=== PATIENT | female | born 1965 | race Caucasian/White ===

== ENCOUNTER 2017-06-01 16:55 | Inpatient (IN) ==
[2017-06-01] MEDS ORDERED: MYLANTA/LIDO VISC 2:1 300 ML BOTTLE SWISH/SWAL PRN (19:48)
[2017-06-01] MEDS ORDERED: guaiFENesin 200 MG/10 ML UDCUP PO PRN (19:48)
[2017-06-01] MEDS ORDERED: MAGNESIUM HYDROXIDE SUSP 30 ML UDCUP PO PRN (19:48)
[2017-06-01] MEDS ORDERED: TEMAZEPAM 7.5 MG CAPSULE PO PRN (19:48)
[2017-06-01] MEDS ORDERED: LACTULOSE 20 GM/30 ML UDCUP PO PRN (19:48)
[2017-06-01] MEDS ORDERED: chlorproMAZINE INJ 50 MG in SODIUM CHLORIDE 0.9% 100 ML IV PRN (19:48)
[2017-06-01] MEDS ORDERED: ONDANSETRON 4 MG/2 ML VIAL IV PRN (19:48)
[2017-06-01] MEDS ORDERED: BENZTROPINE 2 MG/2 ML AMP IV PRN (19:48)
[2017-06-01] MEDS ORDERED: diphenhydrAMINE CAP 25 MG CAPSULE PO PRN (19:48)
[2017-06-01] MEDS ORDERED: ALPRAZolam 0.25 MG TABLET PO PRN (19:48)
[2017-06-01] MEDS ORDERED: chlorproMAZINE 25 MG TABLET PO PRN (19:48)
[2017-06-01] MEDS ORDERED: chlorproMAZINE INJ 25 MG in SODIUM CHLORIDE 0.9% 100 ML IV PRN (19:48)
[2017-06-01] MEDS ORDERED: ALUMINUM/MAGNES/SIMETH MAX STR 30 ML UDCUP PO PRN (19:48)
[2017-06-01] MEDS ORDERED: traMADol 50 MG TABLET PO PRN (19:48)
[2017-06-01] MEDS ORDERED: MYLANTA/LIDO VISC 2:1 300 ML BOTTLE SWISH/SPIT PRN (19:48)
[2017-06-01] MEDS ORDERED: LOPERAMIDE 2 MG CAPSULE PO PRN ×2 (19:48)
[2017-06-01] MEDS ORDERED: PROMETHAZINE INJ 25 MG in SODIUM CHLORIDE 0.9% 50 ML IV PRN (19:48)
[2017-06-01] MEDS ORDERED: ACETAMINOPHEN 325 MG TABLET PO PRN (19:48)
[2017-06-01 20:25] LABS: Basophils % 0.5 % (0.0-0.8); Eosinophils # 0.1 10*3/uL (0.0-0.87); Eosinophils % 1.8 % (0.00-10.9); Hematocrit 42.3 VOL% (35.7-47.0); Hemoglobin 13.8 GM/DL (12.0-16.0); Immature Granulocytes % 0.2 %; Immature Granulocytes Absolute 0.01 #; Lymphocytes # 2.3 10*3/uL (1.4-4.0); Lymphocytes % 34.6 % (21.3-54.2); Mean Corpuscular HGB Conc 32.6 GM/DL (32-36); Mean Corpuscular Hemoglobin 28 PG (27-34); Mean Corpuscular Volume 84.8 FL (87-102); Mean Platelet Volume 9.9 FL (9.6-12.0); Monocytes # 0.1 10*3/uL (0.11-0.8); Monocytes % 1.5 % (1.7-12.7); Neutrophils % 61.4 % (38.7-73.9); Platelet Count 148 T/CUMM (130-400); Red Blood Count 4.99 MC/CUMM (3.8-5.5); Red Cell Distribution Width 14.2 % (9.3-17.3); White Blood Count 6.5 T/CUMM (4-12)
[2017-06-01 20:57] LABS: Albumin 3.6 G/DL (3.4-5.0); Calcium 8.9 MG/DL (8.5-10.1); Magnesium 2.3 MG/DL (1.8-2.4); Osmolality,Calculated 281.3 MOS/KG (273-304); Potassium 3.6 MMOL/L (3.5-5.1); Total Protein 6.6 G/DL (6.4-8.3); Uric Acid 5.7 MG/DL (2.6-6.0)
--- NOTE | 2017-06-02 07:49 | Oncology Progress Note ---
Oncology Subjective PN Interval history: Ms. Shah is admitted with increasing neck pain, shortness of breath and abdominal pain with bloating. She has a history of being diagnosed as having ovarian cancer initially in May [address] Kevin Malin with surgery followed by chemotherapy using Taxol and carboplatin. The ovarian cancer recurred in October 2016 and she underwent debulking surgery, again by Dr. Malin. She was begun on palliative chemotherapy using Taxol, carboplatin and Avastin on December 16, 2016. At the time of recurrence, the cancer was stage IIIc. She had an anaphylactic reaction to carboplatin in December 2016 with her second dose and the carboplatin was discontinued. The Avastin was discontinued later because of poorly controlled hypertension and she remains on Taxol as a single agent. She received 5 total courses of Taxol either in combination with carboplatin and Avastin or as a single agent. She only got 2 doses of carboplatin and those 5 treatments. Her last dose of Taxol was given April 01, 2017. Clinically she appeared to be developing progression of disease and subsequently she received Gemzar 2000 mg IV on May 27, 2017. She is BRCA positive and would qualify for rucaparib if she progresses on Gemzar. My plan was to continue Gemzar every 2 weeks but she presented to my office yesterday and I dictated the history and physical on my electronic medical record and sent it over yesterday. It is supposed to be downloaded on to this electronic medical record. It is not clear that she has progression of her ovarian cancer because a CA 125 done May 27, 2017 was 16.9 which is normal. In addition her CBC and comprehensive metabolic profile are normal. I had ordered a CT of her abdomen and pelvis from June 03 or we are going to admit her and proceed with it. Past medical history: Allergies: Carboplatin Prior operations include removal of the right rib in [place] in 2003, tonsillectomy in 1971, lumbar back surgery involving L4 and L5 in 1992, appendectomy in 1981 and the surgical debulking procedure done in May 2012. She is on long-term Coumadin therapy She has a history of hypertension, gastroesophageal reflux disease, neuropathy, bipolar disorder and anxiety. Social history: She is a former smoker. She is . Family history: Positive for ovarian cancer in her mother and in one sister and positive for BRCA1 mutation. Her mother also suffered blood clots, carcinoma cervix and her sister underwent bilateral mastectomies and had ovarian cancer. ROS Gen.: Positive for fatigue and weight gain. Negative for night sweats, fever, weakness Eyes: Positive for itchy eyes. No history of chronic disease, infections or visual loss. ENT: Positive for headaches, nasal discharge, facial pain, sneezing, hoarseness and postnasal drip. No history of chronic infections, epistaxis, chronic sore throat Lungs: Positive for recurrent upper respiratory infections and also positive for occasional wheezing. No history of asthma, emphysema, hemoptysis, chronic pleurisy or long-term or chronic infections Cardiovascular: Positive for occasional cardiac related chest pain and also positive for claudication, leg ulcers and blood clots of the lower extremities. No history of angina, coronary artery disease, congestive heart failure, cardiovascular surgery or DVT/VTE GI: Positive abdominal pain, constipation and heartburn. No history of upper or lower GI bleeding, melena, dysphagia, odynophagia, liver disease, gallbladder disease or pancreatic disease. : Positive for back pain and cloudy urine, urinary frequency, urgency and incontinence. No history of kidney stones, chronic kidney infections or hematuria. Musculoskeletal: Positive for occasional back pain and also for mild arthritis. Neurologic: She has had focal weakness in the past and has a history of headaches and urinary incontinence. No history of seizures, convulsions or paralysis. Psychiatric: No history of chronic psychiatric illness or psychiatric medications. Lymphatic: No history of significant or long-term lymphadenopathy Hematologic: She has had occasional leukopenia and thrombocytopenia while on chemotherapy. She is also on Coumadin. Otherwise, no history of anemia, bleeding disorders or blood dyscrasias or long-term elevation or depression white cell count or petechiae. Skin: No history of chronic skin infections or rashes or significant skin lesions. Physical examination: General: The patient appears acutely and chronically ill. She is extremely weak. Eyes: Normal lids and conjunctivae. ENT: Edentulous. Her oral mucosa and pharynx are normal. Her hearing is normal. Neck: Her trachea is midline and she has no neck masses. Lungs: Breath sounds are slightly coarse throughout without rubs, rales or rhonchi. Her chest moves symmetrically with respiration. She has tenderness in the right supraclavicular fossa in the area of her Mediport catheter line. Cardiovascular: Her heart rhythm is regular without murmur, gallop or rub. There is no jugular venous distention, clubbing, cyanosis or edema. Abdomen: She is tender throughout her abdomen but I palpate no ascites or masses and there is no organomegaly. Musculoskeletal: There is no focal muscle atrophy or bone or joint deformity. Neurologic: Cranial nerves II through XII are intact. The no focal neurologic deficits. Psychiatric: She is oriented to time, place, person and situation with normal mood and affect. Nodes: I palpate no cervical, supraclavicular or submandibular or axillary adenopathy. Skin: I see no significant skin lesions or rashes of the head neck trunk or upper extremities. Impression: This patient is having right upper neck pain of indefinite etiology that I suspect might be related to her Mediport catheter: Recurrent ovarian cancer currently on chemotherapy using Gemzar which she received for the first time last week. She had been treated previously with Taxol, carboplatin and Avastin but had an allergic reaction to carboplatin and became hypertensive on Avastin. The patient is on long-term anticoagulation with Coumadin because of a history of CVA. Exam - Constitutional Vitals: Period Temp Pulse Resp BP Sys/Orr Pulse Ox Last 24 Hr 97.3 F-98.7 F 62-77 18-20 140-172/79-84 94-96 Results - Labs CBC & BMP: 06/01/17 20:06 06/01/17 20:06
--- NOTE | 2017-06-02 09:07 | CT Report ---
CT abdomen pelvis Indication: Abdominal pain, ovarian cancer Comparison: 02 October 2016 Technique: Axial CT imaging of the abdomen and pelvis is performed with intravenous and oral contrast. Contrast dose is 100 cc of Omnipaque 350. Findings: Cardiac and lung bases are within normal limits CT abdomen: The liver spleen pancreas and adrenal glands are normal in size and enhancement. No evidence of focal lesion is demonstrated in these solid organs. Kidneys are normal in size and enhancement. No evidence of hydronephrosis or nephrolithiasis is seen. The bowel caliber is normal and no wall thickening or adjacent inflammatory change is seen. No evidence of free fluid or free air is present. Aortic caliber is within normal limits and no evidence of aneurysm seen. Small amount of calcification is present. CT pelvis: The pelvic bowel appears within normal limits. Bladder shows no evidence of abnormality. The uterus and ovaries are not identified. No mass or enlarged lymph nodes are present. Impression: No evidence of acute findings or significant change demonstrated This CT exam was performed using one or more the following dose reduction techniques: Automated exposure control, adjustment of the MA and/or KV according to patient size, or use of iterative reconstruction technique. PROCEDURE INTERPRETED AT [facility] DEPARTMENT OF RADIOLOGY Final Report Signed by: Dr. Ayo Melendez
[2017-06-02] MEDS: ALPRAZolam 0.5 MG TABLET PO SCH ×2 (10:25→21:18)
[2017-06-02] MEDS: LEVOFLOXACIN INJ 750 MG in PREMIX 1 EACH IV SCH (10:25)
[2017-06-02] MEDS: amLODIPine 5 MG TABLET PO SCH ×2 (10:25→21:13)
[2017-06-02] MEDS: PANTOPRAZOLE 40 MG TABLET PO SCH (10:25)
[2017-06-02] MEDS: hydroCHLOROthiazide 12.5 MG CAPSULE PO SCH ×2 (10:25→21:12)
[2017-06-02] MEDS: BUDESONIDE/FORMOTEROL 160-4.5 INHALER 6 GM INH SCH (10:25)
[2017-06-02] MEDS: METOPROLOL TARTRATE 100 MG TABLET PO SCH ×2 (10:25→21:13)
[2017-06-02 10:58] LABS: Apearance,Urine CLEAR (Clear); Bilirubin,Urine Negative (Negative); Blood, Urine Small mg/dL (Negative); Glucose,Urine (UA) Negative (Negative); Ketones,Urine Negative (Negative); Nitrite,Urine Negative (Negative); Protein,Urine Negative; RBC,Urine 1 /HPF (0-4); Squamous Epithelial Cell,Urine Occasional /HPF (0-10); Urine Color Straw (Yellow); Urine Specific Gravity 1.058 (1.001-1.035); Urine Urobilinogen < 2.0 EU/DL (0.2-1.0); WBC,Urine 1 /HPF (0-6)
[2017-06-02] MEDS: MAGNESIUM OXIDE 400 MG TABLET PO SCH ×2 (14:06→21:12)
[2017-06-02] MEDS: GABAPENTIN 300 MG CAPSULE PO SCH ×2 (14:06→21:12)
[2017-06-02 14:21] LABS: INR 1.6; PT Patient Result 17.4 SECS
[2017-06-02] MEDS: SIMVASTATIN 20 MG TABLET PO SCH (17:49)
[2017-06-02] MEDS: DEXT 5% NACL 0.45% KCL 20 MEQ 20 MEQ/1,000 ML BAG IV SCH (17:49)
[2017-06-02] MEDS ORDERED: WARFARIN 5 MG TABLET PO SCH (18:00)
[2017-06-02] MEDS: ZALEPLON 5 MG CAPSULE PO SCH (21:13)
[2017-06-03 06:35] LABS: INR 1.6; PT Patient Result 16.4 SECS
--- NOTE | 2017-06-03 08:12 | Oncology Progress Note ---
Oncology Subjective PN Interval history: I ordered a CT of the chest, abdomen and pelvis on Ms. Shah. We are going to go ahead and get it today along with CT of the neck. She has no obvious evidence of metastatic disease in her abdomen or pelvis from her metastatic ovarian cancer but she is still having right neck pain in the area of her Mediport catheter line over the medial end of the supraclavicular fossa on the right. I have her on antibiotics and anticipate being able to send her home very soon but I want to obtain additional information concerning possible pulmonary emboli because she has a history of hypercoagulability with a stroke and she also needs further evaluation of her neck to see if there is any infectious process or metastatic disease there. She is fully oriented and alert now. She is in no acute distress. Her respirations are unlabored. Her voice is clear. Her trachea is midline. She had redness in the right supraclavicular fossa yesterday but this is resolved which makes it suspicious for possible infection responding to antibiotic therapy. Exam - Constitutional Vitals: Period Temp Pulse Resp BP Sys/Ror Pulse Ox Last 24 Hr 96.8 F-98.6 F 61-74 18-20 105-163/64-95 96-99 Results - Labs CBC & BMP: 06/01/17 20:06 06/01/17 20:06
--- NOTE | 2017-06-03 10:03 | CT Report ---
CT chest PE study Indication: Dyspnea Comparison: CT chest abdomen pelvis dated October 02, 2016 Technique: Multiple axial tomographic images of the chest were obtained after the administration of 100 cc Omnipaque 350 intravenous contrast. PE protocol followed. Coronal and sagittal maximum intensity projection images provided. Findings: Heart size within normal limits. Atherosclerotic calcifications within the coronary arteries and great vessels. Mild nonspecific prominence of bilateral hilar lymph nodes. No segmental or larger pulmonary embolism demonstrated. Emphysematous change noted within the lungs which are predominantly paraseptal and upper lobe predominant. Mild dependent change of the lungs present. No focal consolidation, pleural effusion, or pneumothorax. Small Bochdalek type hernia on the left. Small-volume biliary sludge suggested. Visualized upper abdomen demonstrates no acute abnormality. Visualized osseous and surrounding soft tissue structures appear grossly unchanged. IMPRESSION: No segmental or larger pulmonary embolism demonstrated. Emphysematous change of the lungs and other detailed findings as above. The CT exam was performed using one or more of the following dose reduction techniques: Automated exposure control, adjustment of the mA and/or kV according to patient size, or use of iterative reconstruction technique. PROCEDURE INTERPRETED AT [facility] DEPARTMENT OF RADIOLOGY Final Report Signed by: Dr Parminder Telles
[2017-06-03] MEDS: LEVOFLOXACIN INJ 750 MG in PREMIX 1 EACH IV SCH (10:20)
[2017-06-03] MEDS: PANTOPRAZOLE 40 MG TABLET PO SCH (10:22)
[2017-06-03] MEDS: METOPROLOL TARTRATE 100 MG TABLET PO SCH ×2 (10:22→20:39)
[2017-06-03] MEDS: MAGNESIUM OXIDE 400 MG TABLET PO SCH ×3 (10:22→20:40)
[2017-06-03] MEDS: amLODIPine 5 MG TABLET PO SCH ×2 (10:23→20:40)
[2017-06-03] MEDS: ALPRAZolam 0.5 MG TABLET PO SCH ×2 (10:23→20:41)
[2017-06-03] MEDS: GABAPENTIN 300 MG CAPSULE PO SCH ×3 (10:24→20:41)
[2017-06-03] MEDS: hydroCHLOROthiazide 12.5 MG CAPSULE PO SCH ×2 (10:24→20:40)
--- NOTE | 2017-06-03 10:49 | CT Report ---
CT soft tissue neck Indication: Pain and edema Technique:Axial CT imaging of the neck is performed with contrast. Contrast dose is 80 cc Omnipaque 350 Comparison: None available Findings: No mass or adenopathy is seen. The parotid glands and submandibular glands are symmetric in size and density. The pharyngeal and laryngeal structures are normal in appearance. The thyroid gland and trachea appear within normal limits. Right internal jugular Port-A-Cath is present. There is suggestion of some thrombus in the right internal jugular vein. The catheter insertion and just proximal to the catheter. Left internal jugular vein is dominant. Vascular structures have normal contrast appearance. No other abnormal enhancement is seen. Impression: Suggestion of venous thrombosis in the right internal jugular vein, ultrasound may be useful to further evaluate this area. This CT exam was performed using one or more the following dose reduction techniques: Automated exposure control, adjustment of the MA and/or KV according to patient size, or use of iterative reconstruction technique. PROCEDURE INTERPRETED AT [facility] DEPARTMENT OF RADIOLOGY Final Report Signed by: Dr. Ayo Melendez
[2017-06-03] MEDS: BUDESONIDE/FORMOTEROL 160-4.5 INHALER 6 GM INH SCH (15:13)
[2017-06-03] MEDS: SIMVASTATIN 20 MG TABLET PO SCH (20:39)
[2017-06-03] MEDS: APIXABAN 5 MG TABLET PO SCH (20:39)
[2017-06-03] MEDS: ZALEPLON 5 MG CAPSULE PO SCH (20:40)
[2017-06-03] MEDS: DEXT 5% NACL 0.45% KCL 20 MEQ 20 MEQ/1,000 ML BAG IV SCH (23:22)
[2017-06-04 05:33] LABS: Basophils % 0.8 % (0.0-0.8); Eosinophils # 0.1 10*3/uL (0.0-0.87); Eosinophils % 1.4 % (0.00-10.9); Hematocrit 41.5 VOL% (35.7-47.0); Hemoglobin 13.9 GM/DL (12.0-16.0); Immature Granulocytes % 0.8 %; Immature Granulocytes Absolute 0.04 #; Lymphocytes # 2.4 10*3/uL (1.4-4.0); Lymphocytes % 47.5 % (21.3-54.2); Mean Corpuscular HGB Conc 33.5 GM/DL (32-36); Mean Corpuscular Hemoglobin 28 PG (27-34); Mean Corpuscular Volume 83.7 FL (87-102); Mean Platelet Volume 9.9 FL (9.6-12.0); Monocytes # 0.7 10*3/uL (0.11-0.8); Monocytes % 13.3 % (1.7-12.7); NRBC # 0.03 10*3/uL; Neutrophils # 1.8 10*3/uL (1.4-7.4); Neutrophils % 36.2 % (38.7-73.9); Platelet Count 124 T/CUMM (130-400); Red Blood Count 4.96 MC/CUMM (3.8-5.5); Red Cell Distribution Width 14.1 % (9.3-17.3)
[2017-06-04 05:57] LABS: Eosinophils 1 % (0-10); Giant Platelets Few; Hypochromasia 1+; Lymphocytes 47 % (20-55); Ovalocytes Slight; Platelet Estimate Normal; Segmented Neutrophils 38 % (50-85); Total Cells Counted 100
--- NOTE | 2017-06-04 07:50 | Oncology Progress Note ---
Oncology Subjective PN Interval history: This patient is having right upper neck pain of indefinite etiology that I suspect might be related to her Mediport catheter: This is now been confirmed. She has local clot formation in the internal jugular vein. I have at least temporarily switched her to Eliquis from Coumadin. I consider Eliquis a safer drug. If she remains stable, I will plan to discharge her tomorrow and have her return for her next dose of Gemzar next week. Recurrent ovarian cancer currently on chemotherapy using Gemzar which she received for the first time last week. She had been treated previously with Taxol, carboplatin and Avastin but had an allergic reaction to carboplatin and became hypertensive on Avastin. She is currently on Gemzar and apparently in complete remission. She is due Gemzar again next week. The patient is on long-term anticoagulation with Coumadin because of a history of CVA. She is fully oriented and alert and in no new distress. Her right neck pain and swelling have improved. I am going to continue IV antibiotics 1 more day as well for possible infection resulting in the thrombosis. She is having no arm swelling and there has never been any significant swelling of the neck or face, just tenderness and focal redness that I attributed to her rubbing the spot. Lab work today includes a normal white cell count of 5000 with a hemoglobin of 13.9 and a platelet count is only slightly low at 124,000. I will recheck lab work tomorrow but anticipate discharge. Exam - Constitutional Vitals: Period Temp Pulse Resp BP Sys/Orr Pulse Ox Last 24 Hr 96.5 F-97.2 F 65-83 18-20 98-136/63-93 96-97 Results - Labs CBC & BMP: 06/04/17 04:39 06/01/17 20:06
[2017-06-04] MEDS: GABAPENTIN 300 MG CAPSULE PO SCH ×3 (08:50→21:24)
[2017-06-04] MEDS: APIXABAN 5 MG TABLET PO SCH ×2 (08:50→21:24)
[2017-06-04] MEDS: MAGNESIUM OXIDE 400 MG TABLET PO SCH ×3 (08:50→21:24)
[2017-06-04] MEDS: ALPRAZolam 0.5 MG TABLET PO SCH ×2 (08:50→21:24)
[2017-06-04] MEDS: PANTOPRAZOLE 40 MG TABLET PO SCH (08:50)
[2017-06-04] MEDS: METOPROLOL TARTRATE 100 MG TABLET PO SCH ×2 (08:51→21:04)
[2017-06-04] MEDS: amLODIPine 5 MG TABLET PO SCH ×2 (08:51→21:04)
[2017-06-04] MEDS: LEVOFLOXACIN INJ 750 MG in PREMIX 1 EACH IV SCH (08:51)
[2017-06-04] MEDS: hydroCHLOROthiazide 12.5 MG CAPSULE PO SCH ×2 (08:51→21:04)
[2017-06-04] MEDS: DEXT 5% NACL 0.45% KCL 20 MEQ 20 MEQ/1,000 ML BAG IV SCH ×2 (08:55→21:29)
[2017-06-04] MEDS: BUDESONIDE/FORMOTEROL 160-4.5 INHALER 6 GM INH SCH (08:56)
[2017-06-04] MEDS: SIMVASTATIN 20 MG TABLET PO SCH (17:14)
[2017-06-04] MEDS: ZALEPLON 5 MG CAPSULE PO SCH (21:24)
[2017-06-05 03:59] LABS: Basophils % 0.2 % (0.0-0.8); Eosinophils # 0.1 10*3/uL (0.0-0.87); Eosinophils % 1.4 % (0.00-10.9); Hematocrit 36.7 VOL% (35.7-47.0); Hemoglobin 12.2 GM/DL (12.0-16.0); Immature Granulocytes % 0.5 %; Immature Granulocytes Absolute 0.03 #; Lymphocytes # 2.5 10*3/uL (1.4-4.0); Lymphocytes % 44.4 % (21.3-54.2); Mean Corpuscular HGB Conc 33.2 GM/DL (32-36); Mean Corpuscular Hemoglobin 28 PG (27-34); Mean Corpuscular Volume 84.4 FL (87-102); Mean Platelet Volume 10.1 FL (9.6-12.0); Monocytes # 0.7 10*3/uL (0.11-0.8); Monocytes % 12.1 % (1.7-12.7); NRBC # 0.02 10*3/uL; Neutrophils # 2.4 10*3/uL (1.4-7.4); Neutrophils % 41.4 % (38.7-73.9); Platelet Count 116 T/CUMM (130-400); Red Blood Count 4.35 MC/CUMM (3.8-5.5); Red Cell Distribution Width 14.2 % (9.3-17.3); White Blood Count 5.7 T/CUMM (4-12)
[2017-06-05 04:37] LABS: Bilirubin,Total 0.8 MG/DL (0.2-1.0); Calcium 8.5 MG/DL (8.5-10.1); Osmolality,Calculated 281.3 MOS/KG (273-304); Potassium 3.6 MMOL/L (3.5-5.1); Total Protein 5.6 G/DL (6.4-8.3)
--- NOTE | 2017-06-05 08:09 | Oncology Progress Note ---
Oncology Subjective PN Interval history: Diagnoses: Right internal jugular vein thrombosis: Ms. Shah was admitted with right neck pain that turned out to be thrombosis of the right internal jugular vein. She was on Coumadin but am discharging her on Eliquis and discontinuing the Coumadin. She will go home on Eliquis 5 mg p.o. twice daily but she is instructed to not dispose of her Coumadin in case we go back to it. Recurrent ovarian carcinoma with stage IIIb disease: During this hospital stay she underwent scanning of the neck, chest, abdomen and pelvis using CT with contrast. She has no evidence of recurrence or metastatic disease from her ovarian cancer. She is scheduled for her second dose of Gemzar on June 10 and she is instructed to come to the office to receive it that day. History of cerebrovascular accident on long-term anticoagulant therapy: We are switching her to Eliquis from Coumadin. There should be slightly less risk of life-threatening hemorrhage by doing this. In addition, we will not need to check prothrombin times. Thrombocytopenia: The patient's platelet count is above 100,000 so her blood count is satisfactory for discharge. Exam - Constitutional Vitals: Period Temp Pulse Resp BP Sys/Orr Pulse Ox Last 24 Hr 97.3 F-100.0 F 80-96 18-20 71-117/56-82 92-96 Results - Labs CBC & BMP: 06/05/17 03:31 06/05/17 03:31
--- NOTE | 2017-06-05 09:14 | Discharge Summary ---
Hospital Course - Hospital Course Hospital Course: Diagnoses: Right internal jugular vein thrombosis: Ms. Shah was admitted with right neck pain that turned out to be thrombosis of the right internal jugular vein. She was on Coumadin but am discharging her on Eliquis and discontinuing the Coumadin. She will go home on Eliquis 5 mg p.o. twice daily but she is instructed to not dispose of her Coumadin in case we go back to it. Recurrent ovarian carcinoma with stage IIIb disease: During this hospital stay she underwent scanning of the neck, chest, abdomen and pelvis using CT with contrast. She has no evidence of recurrence or metastatic disease from her ovarian cancer. She is scheduled for her second dose of Gemzar on June 10 and she is instructed to come to the office to receive it that day. History of cerebrovascular accident on long-term anticoagulant therapy: We are switching her to Eliquis from Coumadin. There should be slightly less risk of life-threatening hemorrhage by doing this. In addition, we will not need to check prothrombin times. Thrombocytopenia: The patient's platelet count is above 100,000 so her blood count is satisfactory for discharge. Discharge Plan - Discharge Data Disposition: Disch To Home/Self Care Condition at Discharge: Guarded Discharge Diet: advance to your usual diet Activity: resume usual activities as tolerated Hygiene: no restrictions Weight Bearing at Discharge: weight bear as tolerated Driving: other Contact your physician if you experience:: fever over 101, Difficulty voiding, Redness or swelling, Nausea/Vomiting, Shortness of breath, Bleeding, pain uncontrolled by pain medications - Discharge Medications New Apixaban [Eliquis] 5 mg PO BID #60 tablet Continue Simvastatin 20 mg PO DAILY W/SUPPER Omeprazole 20 mg PO DAILY Metoprolol Tartrate 100 mg PO BID Gabapentin 300 mg PO TID Amlodipine Besylate 5 mg PO BID ALPRAZolam [Alprazolam] 0.5 mg PO BID Magnesium Oxide 400 mg PO TID hydroCHLOROthiazide [Hydrochlorothiazide] 12.5 mg PO BID Zolpidem Tartrate 10 mg PO BEDTIME Budesonide/Formoterol 160-4.5 [Symbicort 160-4.5] 1 puff INH DAILY Discontinued Warfarin Sodium [Warfarin Sodium] 5 mg PO DAILY - Follow Up or Referral - Forms/Instructions Additional Discharge Instructions: Return as already scheduled for chemotherapy next Thursday. Keep follow-up visit already scheduled to see me. Exam - Constitutional Vitals: Period Temp Pulse Resp BP Sys/Orr Pulse Ox Last 24 Hr 97.3 F-100.0 F 80-96 18-20 71-117/56-82 92-96 Discharge Results Procedures and tests throughout hospitalization: Pending Orders 06/06/17 04:00 Comp Blood Count Auto Diff IN AM 06/07/17 04:00 Comp Blood Count Auto Diff IN AM 06/08/17 04:00 Comp Blood Count Auto Diff IN AM 06/09/17 04:00 Comp Blood Count Auto Diff IN AM 06/10/17 04:00 Comp Blood Count Auto Diff IN AM Labs on day of discharge: Labs from last 24 hours 06/05/17 06/05/17 03:31 03:31 WBC 5.7 RBC 4.35 Hgb 12.2 Hct 36.7 MCV 84.4 L MCH 28 MCHC 33.2 RDW 14.2 Plt Count 116 L MPV 10.1 Neut % (Auto) 41.4 Lymph % (Auto) 44.4 [place] % (Auto) 12.1 Eos % (Auto) 1.4 Baso % (Auto) 0.2 Neut # (Auto) 2.4 Lymph # (Auto) 2.5 [place] # (Auto) 0.7 Eos # (Auto) 0.1 Baso # (Auto) 0.0 Immature Gran % 0.5 Nucleated RBC % 0.3 Immature Gran # 0.03 Nucleated RBCs # 0.02 Immature Plt Fraction 0.0 Sodium 141 Potassium 3.6 Chloride 105 Carbon Dioxide 28 Anion Gap 11.6 BUN 13 Creatinine 1.00 GFR Calculation 73 BUN/Creatinine Ratio 13.00 Glucose 120 H Calculated Osmolality 281.3 Calcium 8.5 Total Bilirubin 0.80 AST 11 ALT 21 Alkaline Phosphatase 81 Lactate Dehydrogenase 190 Total Protein 5.6 L Albumin 3.0 L Globulin 2.6 Albumin/Globulin Ratio 1.1 DS: Provider Date of admission: 06/01/17 16:55 Primary care physician: Abad Mccann MD Attending physician on admission: Abad Mccann MD Discharging clinician: Abad Mccann MD
[2017-06-05] MEDS: MAGNESIUM OXIDE 400 MG TABLET PO SCH (09:19)
[2017-06-05] MEDS: APIXABAN 5 MG TABLET PO SCH (09:19)
[2017-06-05] MEDS: ALPRAZolam 0.5 MG TABLET PO SCH (09:19)
[2017-06-05] MEDS: GABAPENTIN 300 MG CAPSULE PO SCH (09:19)
[2017-06-05] MEDS: PANTOPRAZOLE 40 MG TABLET PO SCH (09:20)
[2017-06-05] MEDS: LEVOFLOXACIN INJ 750 MG in PREMIX 1 EACH IV SCH (09:20)
[2017-06-05] MEDS: BUDESONIDE/FORMOTEROL 160-4.5 INHALER 6 GM INH SCH (09:24)
[2017-06-05] MEDS: amLODIPine 5 MG TABLET PO SCH (11:29)
[2017-06-05] MEDS: hydroCHLOROthiazide 12.5 MG CAPSULE PO SCH (11:30)
[2017-06-05] MEDS: METOPROLOL TARTRATE 100 MG TABLET PO SCH (11:30)
== END 2017-06-05 11:30 | disposition home health service, planned readmission (86) | DRG 300 ==
LOC: N.4E 16:55
PROVIDERS: ADMIT Specialist; ATTEND Specialist

== ENCOUNTER 2020-08-10 18:51 | Observation (INO) ==
[2020-08-10 20:29] LABS: Basophils # 0.1 10*3/uL (0.0-0.2); Eosinophils # 0.2 10*3/uL (0.0-0.87); Eosinophils % 2.6 % (0.00-10.9); Hematocrit 42.6 VOL% (35.7-47.0); Hemoglobin 14.3 GM/DL (12.0-16.0); Immature Granulocytes % 0.4 %; Immature Granulocytes Absolute 0.03 #; Lymphocytes # 1.6 10*3/uL (1.4-4.0); Lymphocytes % 23.6 % (21.3-54.2); Mean Corpuscular HGB Conc 33.6 GM/DL (32-36); Mean Corpuscular Volume 90.6 FL (87-102); Mean Platelet Volume 10.6 FL (9.6-12.0); Monocytes % 0.9 % (1.7-12.7); Neutrophils % 71.5 % (38.7-73.9); Platelet Count 314 T/CUMM (130-400); Red Cell Distribution Width 14.8 % (9.3-17.3); White Blood Count 6.9 T/CUMM (4-12)
[2020-08-10] MEDS ORDERED: NITROGLYCERIN SL 0.4 MG TABLET SL PRN (20:36)
[2020-08-10 20:37] LABS: INR 0.9; PT Patient Result 9.9 SECS (9.8-11.9); Partial Thromboplastin Time 29.2 SECS (23.9-33.8)
[2020-08-10 20:54] LABS: Albumin 3.8 G/DL (3.4-5.0); Bilirubin,Total 0.6 MG/DL (0.2-1.0); Calcium 8.8 MG/DL (8.5-10.1); Osmolality,Calculated 275.5 MOS/KG (273-304); Total Protein 6.7 G/DL (6.4-8.3)
[2020-08-10 21:07] LABS: Lymphocytes 29 % (20-55); Segmented Neutrophils 68 % (50-85); Total Cells Counted 100
[2020-08-10] MEDS ORDERED: guaiFENesin/DM ER 600-30 MG TABLET PO PRN (23:13)
[2020-08-10] MEDS ORDERED: diphenhydrAMINE CAP 25 MG CAPSULE PO PRN (23:13)
[2020-08-10] MEDS ORDERED: GLUCAGON 1 MG VIAL IM PRN (23:13)
[2020-08-10] MEDS ORDERED: NICOTINE 21 MG/24 HR PATCH TRANSDERM PRN (23:13)
[2020-08-10] MEDS ORDERED: ACETAMINOPHEN 325 MG TABLET PO PRN (23:13)
[2020-08-10] MEDS ORDERED: ONDANSETRON 4 MG/2 ML VIAL IV PRN (23:13)
[2020-08-10] MEDS ORDERED: hydrALAZINE 20 MG/1 ML VIAL IV PRN (23:13)
[2020-08-10] MEDS ORDERED: DEXTROSE 50% 25 GM/50 ML VIAL IV PRN (23:13)
[2020-08-10] MEDS ORDERED: ENOXAPARIN 30 MG/0.3 ML SYRINGE SUBCUT STA (23:17)
[2020-08-10] MEDS ORDERED: ENOXAPARIN 80 MG/0.8 ML SYRINGE SUBCUT ONE (23:30)
[2020-08-11 00:20] LABS: Risk Ratio 6.09; Thyroid Stimulating Hormone 4.55 uIU/ml (0.358-3.74)
[2020-08-11] MEDS: MORPHINE 4 MG/1 ML VIAL IV PRN ×3 (03:31→22:52)
[2020-08-11] MEDS ORDERED: ALBUTEROL/IPRATROPIUM 3 ML NEB RESP TX PRN (08:50)
[2020-08-11] MEDS ORDERED: ASPIRIN EC 81 MG TABLET PO SCH (09:00)
[2020-08-11 09:15] LABS: Free T4 (Free Thyroxine) 1.18 NG/DL (0.76-1.46)
[2020-08-11] MEDS: ENOXAPARIN 60 MG/0.6 ML SYRINGE SUBCUT SCH ×2 (09:47→21:48)
[2020-08-11] MEDS: METOPROLOL TARTRATE 100 MG TABLET PO SCH ×2 (09:47→21:47)
[2020-08-11] MEDS: BUDESONIDE/FORMOTEROL 160-4.5 INHALER 6 GM INH SCH (09:47)
[2020-08-11] MEDS ORDERED: MAGNESIUM SULF RIDER 2 GM in PREMIX 1 EACH IV PRN (11:56)
[2020-08-11] MEDS ORDERED: POTASSIUM CHLORIDE RIDER 10 MEQ in PREMIX 1 EACH IV PRN (11:56)
[2020-08-11] MEDS ORDERED: diphenhydrAMINE CAP 25 MG CAPSULE PO ONE (11:56)
[2020-08-11] MEDS ORDERED: ASPIRIN 325 MG TABLET PO ONE (11:56)
[2020-08-11] MEDS ORDERED: DIAZEPAM 5 MG TABLET PO ONE (11:56)
[2020-08-11] MEDS ORDERED: LIDOCAINE 1% 20 ML VIAL ONE (12:20)
[2020-08-11] MEDS ORDERED: MIDAZOLAM 2 MG/2 ML VIAL ONE (12:35)
[2020-08-11] MEDS ORDERED: fentaNYL 100 MCG/2 ML VIAL ONE (12:35)
[2020-08-11] MEDS ORDERED: CLOPIDOGREL 300 MG TABLET ONE (13:06)
[2020-08-11] MEDS: SODIUM CHLORIDE 0.9% 1,000 ML IV SCH (13:29)
[2020-08-11] MEDS: ALPRAZolam 0.5 MG TABLET PO SCH ×2 (13:29→21:47)
[2020-08-11] MEDS: ISOSORBIDE MONONITRATE 30 MG TABLET PO SCH (13:41)
[2020-08-11] MEDS: PANTOPRAZOLE 40 MG TABLET PO SCH (13:41)
[2020-08-11] MEDS ORDERED: SIMVASTATIN 20 MG TABLET PO SCH (17:00)
[2020-08-11 21:35] LABS: Hematocrit 31.5 VOL% (35.7-47.0); Hemoglobin 10.7 GM/DL (12.0-16.0)
[2020-08-11 23:06] LABS: Hemoglobin 10.5 GM/DL (12.0-16.0)
[2020-08-12] MEDS: SODIUM CHLORIDE 0.9% 1,000 ML IV SCH ×2 (00:34→13:07)
[2020-08-12] MEDS: MORPHINE 4 MG/1 ML VIAL IV PRN (02:03)
[2020-08-12 06:20] LABS: Basophils # 0.1 10*3/uL (0.0-0.2); Basophils % 1.5 % (0.0-0.8); Eosinophils # 0.1 10*3/uL (0.0-0.87); Eosinophils % 1.5 % (0.00-10.9); Hematocrit 32.9 VOL% (35.7-47.0); Hemoglobin 10.8 GM/DL (12.0-16.0); Immature Granulocytes % 0.6 %; Immature Granulocytes Absolute 0.02 #; Lymphocytes # 1.6 10*3/uL (1.4-4.0); Mean Corpuscular HGB Conc 32.8 GM/DL (32-36); Mean Corpuscular Volume 92.9 FL (87-102); Mean Platelet Volume 9.7 FL (9.6-12.0); Monocytes % 7.2 % (1.7-12.7); Neutrophils % 42.2 % (38.7-73.9); Platelet Count 201 T/CUMM (130-400); Red Blood Count 3.54 MC/CUMM (3.8-5.5); Red Cell Distribution Width 14.8 % (9.3-17.3); White Blood Count 3.3 T/CUMM (4-12)
[2020-08-12 06:37] LABS: Calcium 8.1 MG/DL (8.5-10.1); Osmolality,Calculated 281.1 MOS/KG (273-304)
[2020-08-12 07:02] LABS: Hypochromasia 1+; Microcytosis 1+; Ovalocytes Slight; Platelet Estimate Adequate
[2020-08-12] MEDS ORDERED: CLOPIDOGREL 75 MG TABLET PO SCH (09:00)
[2020-08-12] MEDS: PANTOPRAZOLE 40 MG TABLET PO SCH (09:11)
[2020-08-12] MEDS: ISOSORBIDE MONONITRATE 30 MG TABLET PO SCH (09:11)
[2020-08-12] MEDS: ENOXAPARIN 60 MG/0.6 ML SYRINGE SUBCUT SCH (09:11)
[2020-08-12] MEDS: METOPROLOL TARTRATE 100 MG TABLET PO SCH (09:11)
[2020-08-12] MEDS: BUDESONIDE/FORMOTEROL 160-4.5 INHALER 6 GM INH SCH (09:12)
[2020-08-12] MEDS: ALPRAZolam 0.5 MG TABLET PO SCH (09:12)
[2020-08-12 12:15] VITALS: BP 145/80
[2020-08-12] MEDS ORDERED: SIMVASTATIN 40 MG TABLET PO SCH (21:00)
== END 2020-08-12 16:14 | disposition home or self-care (01) ==
LOC: N.ED 18:51 → N.EDINP 18:51 → N.TELEN 23:44
PROVIDERS: ADMIT Specialist; ATTEND Specialist
PROC: CLCCHCL (ICD-10-PCS; 2020-08-11 13:15)

== ENCOUNTER 2021-01-12 22:16 | Inpatient (IN) ==
[2021-01-12] MEDS ORDERED: hydrALAZINE 20 MG/1 ML VIAL IV STA (23:16)
[2021-01-12 23:35] LABS: Basophils # 0.1 10*3/uL (0.0-0.2); Basophils % 0.6 % (0.0-0.8); Eosinophils # 0.2 10*3/uL (0.0-0.87); Eosinophils % 1.7 % (0.00-10.9); Hematocrit 44.3 VOL% (35.7-47.0); Hemoglobin 14.1 GM/DL (12.0-16.0); Immature Granulocytes % 0.3 %; Immature Granulocytes Absolute 0.03 #; Lymphocytes # 2.3 10*3/uL (1.4-4.0); Lymphocytes % 24.4 % (21.3-54.2); Mean Corpuscular HGB Conc 31.8 GM/DL (32-36); Mean Corpuscular Volume 85.5 FL (87-102); Mean Platelet Volume 10.3 FL (9.6-12.0); Monocytes % 12.9 % (1.7-12.7); Neutrophils % 60.1 % (38.7-73.9); Platelet Count 201 T/CUMM (130-400); Red Blood Count 5.18 MC/CUMM (3.8-5.5); Red Cell Distribution Width 17.4 % (9.3-17.3); White Blood Count 9.3 T/CUMM (4-12)
[2021-01-12 23:53] LABS: Albumin 3.5 G/DL (3.4-5.0); Bilirubin,Total 0.5 MG/DL (0.2-1.0); Osmolality,Calculated 286.8 MOS/KG (273-304); Potassium 3.6 MMOL/L (3.5-5.1); Total Protein 6.5 G/DL (6.4-8.2)
[2021-01-13] MEDS ORDERED: KETOROLAC 30 MG/1 ML VIAL IV STA (00:57)
[2021-01-13] MEDS ORDERED: SODIUM CHLORIDE 0.9% 500 ML IV STA (00:57)
[2021-01-13] MEDS ORDERED: VANCOMYCIN INJ 1,000 MG in SODIUM CHLORIDE 0.9% 250 ML IV STA (00:58)
[2021-01-13] MEDS ORDERED: diphenhydrAMINE CAP 25 MG CAPSULE PO PRN (01:31)
[2021-01-13] MEDS ORDERED: GLUCAGON 1 MG VIAL IM PRN (01:31)
[2021-01-13] MEDS ORDERED: ACETAMINOPHEN 325 MG TABLET PO PRN (01:31)
[2021-01-13] MEDS ORDERED: DEXTROSE 50% 25 GM/50 ML VIAL IV PRN (01:31)
[2021-01-13] MEDS ORDERED: ONDANSETRON 4 MG/2 ML VIAL IV PRN (01:31)
[2021-01-13] MEDS: MORPHINE 4 MG/1 ML VIAL IV PRN ×2 (03:26→11:14)
[2021-01-13] MEDS: MEROPENEM 500 MG in SODIUM CHLORIDE 0.9% 100 ML IV SCH ×3 (08:29→20:30)
[2021-01-13] MEDS: VANCOMYCIN INJ 1,000 MG in SODIUM CHLORIDE 0.9% 250 ML IV SCH (14:15)
[2021-01-13] MEDS ORDERED: ALPRAZolam 0.5 MG TABLET PO PRN (14:40)
[2021-01-13] MEDS ORDERED: GABAPENTIN 300 MG CAPSULE PO PRN (14:40)
[2021-01-13] MEDS: MAGNESIUM OXIDE 400 MG TABLET PO SCH ×2 (16:59→20:31)
[2021-01-13] MEDS: APIXABAN 5 MG TABLET PO SCH (20:28)
[2021-01-13] MEDS: SIMVASTATIN 40 MG TABLET PO SCH (20:31)
[2021-01-13] MEDS: ZALEPLON 5 MG CAPSULE PO SCH (20:31)
[2021-01-13] MEDS: METOPROLOL TARTRATE 100 MG TABLET PO SCH (21:36)
[2021-01-14] MEDS: VANCOMYCIN INJ 1,000 MG in SODIUM CHLORIDE 0.9% 250 ML IV SCH ×2 (01:50→15:01)
[2021-01-14] MEDS: MEROPENEM 500 MG in SODIUM CHLORIDE 0.9% 100 ML IV SCH ×4 (02:50→20:48)
[2021-01-14 05:44] LABS: Basophils # 0.1 10*3/uL (0.0-0.2); Basophils % 0.7 % (0.0-0.8); Eosinophils # 0.3 10*3/uL (0.0-0.87); Eosinophils % 3.6 % (0.00-10.9); Hematocrit 40.2 VOL% (35.7-47.0); Hemoglobin 12.7 GM/DL (12.0-16.0); Immature Granulocytes % 0.6 %; Immature Granulocytes Absolute 0.04 #; Lymphocytes # 1.9 10*3/uL (1.4-4.0); Lymphocytes % 26.6 % (21.3-54.2); Mean Corpuscular HGB Conc 31.6 GM/DL (32-36); Mean Corpuscular Volume 85.9 FL (87-102); Mean Platelet Volume 10.6 FL (9.6-12.0); Monocytes % 12.6 % (1.7-12.7); Neutrophils % 55.9 % (38.7-73.9); Platelet Count 172 T/CUMM (130-400); Red Blood Count 4.68 MC/CUMM (3.8-5.5); Red Cell Distribution Width 17.2 % (9.3-17.3)
[2021-01-14] MEDS: MORPHINE 4 MG/1 ML VIAL IV PRN ×2 (08:34→15:00)
[2021-01-14] MEDS: MAGNESIUM OXIDE 400 MG TABLET PO SCH ×3 (08:35→20:49)
[2021-01-14] MEDS: ISOSORBIDE MONONITRATE 30 MG TABLET PO SCH (08:36)
[2021-01-14] MEDS: PANTOPRAZOLE 40 MG TABLET PO SCH (08:36)
[2021-01-14] MEDS: METOPROLOL TARTRATE 100 MG TABLET PO SCH ×2 (08:36→20:49)
[2021-01-14] MEDS ORDERED: hydrALAZINE 20 MG/1 ML VIAL IV PRN (09:50)
[2021-01-14] MEDS: LOSARTAN 25 MG TABLET PO SCH (10:25)
[2021-01-14] MEDS: APIXABAN 5 MG TABLET PO SCH ×2 (10:51→20:49)
[2021-01-14] MEDS: ASPIRIN 325 MG TABLET PO SCH (10:51)
[2021-01-14] MEDS: ZALEPLON 5 MG CAPSULE PO SCH (20:48)
[2021-01-14] MEDS: SIMVASTATIN 40 MG TABLET PO SCH (20:49)
[2021-01-14] MEDS ORDERED: hydrALAZINE 25 MG TABLET PO SCH (21:00)
[2021-01-15] MEDS: VANCOMYCIN INJ 1,000 MG in SODIUM CHLORIDE 0.9% 250 ML IV SCH (01:40)
[2021-01-15] MEDS: MEROPENEM 500 MG in SODIUM CHLORIDE 0.9% 100 ML IV SCH ×2 (02:43→08:56)
[2021-01-15 08:07] LABS: Basophils # 0.1 10*3/uL (0.0-0.2); Eosinophils # 0.3 10*3/uL (0.0-0.87); Eosinophils % 3.6 % (0.00-10.9); Hematocrit 41.5 VOL% (35.7-47.0); Hemoglobin 13.5 GM/DL (12.0-16.0); Immature Granulocytes % 0.4 %; Immature Granulocytes Absolute 0.03 #; Lymphocytes # 1.5 10*3/uL (1.4-4.0); Lymphocytes % 21.9 % (21.3-54.2); Mean Corpuscular HGB Conc 32.5 GM/DL (32-36); Mean Platelet Volume 10.2 FL (9.6-12.0); Monocytes % 11.1 % (1.7-12.7); Platelet Count 183 T/CUMM (130-400); Red Blood Count 4.88 MC/CUMM (3.8-5.5); Red Cell Distribution Width 16.7 % (9.3-17.3)
[2021-01-15 08:26] LABS: Albumin 3.1 G/DL (3.4-5.0); Bilirubin,Total 0.9 MG/DL (0.2-1.0); Calcium 8.7 MG/DL (8.5-10.1); Potassium 3.6 MMOL/L (3.5-5.1); Total Protein 6.1 G/DL (6.4-8.2)
[2021-01-15] MEDS: MORPHINE 4 MG/1 ML VIAL IV PRN (08:56)
[2021-01-15] MEDS: APIXABAN 5 MG TABLET PO SCH (08:58)
[2021-01-15] MEDS: PANTOPRAZOLE 40 MG TABLET PO SCH (08:58)
[2021-01-15] MEDS: MAGNESIUM OXIDE 400 MG TABLET PO SCH (08:58)
[2021-01-15] MEDS: ASPIRIN 325 MG TABLET PO SCH (08:58)
[2021-01-15] MEDS: METOPROLOL TARTRATE 100 MG TABLET PO SCH (08:58)
[2021-01-15] MEDS: LOSARTAN 25 MG TABLET PO SCH (09:01)
[2021-01-15] MEDS: ISOSORBIDE MONONITRATE 30 MG TABLET PO SCH (09:02)
[2021-01-15] MEDS ORDERED: FLUCONAZOLE 200 MG TABLET PO ONE (10:18)
[2021-01-15 11:40] VITALS: BP 102/69
== END 2021-01-15 13:12 | disposition home or self-care (01) | DRG 603 ==
LOC: N.ED 22:16 → SUATTDRO 01-13 02:00 → N.EDINP 01-13 02:00 → N.4E 01-13 02:28
PROVIDERS: ADMIT Internal Medicine; ATTEND Internal Medicine